=== PATIENT | female | born 1935 | race Two or more races ===

== ENCOUNTER 2017-05-24 22:30 | Inpatient (IN) | payer MEDICARE, MEDICAID ==
[~2017-05-24] VITALS: Ht 154.9 cm; Wt 47.2 kg
[2017-05-24 22:58] LABS: HEMATOCRIT 34.8 % (34.6-47.8); HEMOGLOBIN 10.6 g/dL (11.7-16.4); WHITE BLOOD COUNT 8.8 x10^3/uL (3.4-10)
[2017-05-24 23:09] LABS: BLOOD UREA NITROGEN 24 mg/dL (7-18)
[2017-05-24 23:13] LABS: DIFF TOTAL CELLS COUNTED 100 CELL DIFF
[2017-05-24 23:14] LABS: ASPARTATE AMINO TRANSFERASE 31 U/L (15-37); IS PT STATUS REG ER OR PRE ER? YES
[2017-05-24 23:17] LABS: VERIFY COUNTS? YES
[2017-05-24] MEDS ORDERED: ASPIRIN 81 MG TABLET CHEW PO ONE (23:30)
[2017-05-24] MEDS ORDERED: ASPIRIN 81 MG TABLET CHEW ONE (23:48)
[2017-05-25] MEDS ORDERED: LEVETIRACETAM 500 MG in SODIUM CHLORIDE 0.9% 100 ML IV ONE (00:30)
[2017-05-25] MEDS ORDERED: BISACODYL 10 MG SUPP PR PRN (01:00)
[2017-05-25] MEDS ORDERED: ACETAMINOPHEN 325 MG TABLET PO PRN (01:00)
[2017-05-25] MEDS ORDERED: ONDANSETRON 2MG/ML, 2ML IVPush PRN (01:00)
[2017-05-25] MEDS ORDERED: hydrALAzine 20 MG/ML, 1ML IVPush PRN (01:00)
[2017-05-25] MEDS: LEVETIRACETAM 500 MG in SODIUM CHLORIDE 0.9% 100 ML IV SCH ×2 (01:00→19:05)
[2017-05-25] MEDS: SODIUM CHLORIDE 0.9% 1,000 ML IV SCH ×2 (01:48→15:00)
[2017-05-25 05:08] LABS: HEMATOCRIT 31.8 % (34.6-47.8); WHITE BLOOD COUNT 10.2 x10^3/uL (3.4-10)
[2017-05-25 05:18] LABS: BLOOD UREA NITROGEN 25 mg/dL (7-18)
[2017-05-25 05:23] LABS: IS PT STATUS REG ER OR PRE ER? YES
[2017-05-25 11:35] LABS: IS PT STATUS REG ER OR PRE ER? YES
[2017-05-25 19:54] VITALS: BP_SYST 151; BP_SYST 154; BP_DIAS 69; BP_DIAS 72
[2017-05-25 20:11] VITALS: BP 154/72
[2017-05-26 02:38] VITALS: BP 132/76
[2017-05-26] MEDS: SODIUM CHLORIDE 0.9% 1,000 ML IV SCH (04:33)
[2017-05-26] MEDS: LEVETIRACETAM 500 MG in SODIUM CHLORIDE 0.9% 100 ML IV SCH (05:38)
[2017-05-26 05:57] LABS: HEMATOCRIT 31.8 % (34.6-47.8); HEMOGLOBIN 9.9 g/dL (11.7-16.4)
[2017-05-26 06:00] LABS: BLOOD UREA NITROGEN 15 mg/dL (7-18)
[2017-05-26 07:46] VITALS: BP 146/71
== END 2017-05-26 13:36 | disposition home or self-care (01) | DRG 85 ==
LOC: ED 23:59 → SUATTDRO 05-25 00:17 → EDIP 05-25 00:35 → 5SO 05-25 19:45 → DCLOUNGE 05-26 13:10
PROVIDERS: ATTEND Family Medicine
DX: S06.5X1A Traumatic subdural hemorrhage with loss of consciousness of 30 minutes or less, initial encounter (principal); N17.0 Acute kidney failure with tubular necrosis; I21.3 ST elevation (STEMI) myocardial infarction of unspecified site; E44.0 Moderate protein-calorie malnutrition; Z68.1 Body mass index [BMI] 19.9 or less, adult; E86.0 Dehydration; Z91.81 History of falling; Y92.9 Unspecified place or not applicable; D50.9 Iron deficiency anemia, unspecified; E03.9 Hypothyroidism, unspecified; W18.39XA Other fall on same level, initial encounter; Y93.01 Activity, walking, marching and hiking; Z79.899 Other long term (current) drug therapy; Y92.098 Other place in other non-institutional residence as the place of occurrence of the external cause; Y99.8 Other external cause status
CPT/HCPCS: 36415; 70450; 71010; 72125; 80048; 80053; 81001; 84484; 85025; 85610; 85730; 87077; 87086; 87186; 93005; 93306; 93880; 96365; J1953; J7030